=== PATIENT | female | born 1990 | race Caucasian/White ===

== ENCOUNTER 2018-06-23 07:24 | Emergency (ER) | payer BC ==
[2018-06-23 07:54] LABS: PLATELET COUNT 280 10^3/uL (150-400)
--- NOTE | 2018-06-23 08:07 | EDPHY ---
H & P Stated Complaint: gen abd pain x2wks worse last night, nausea, low back pain Time Seen by Provider: 06/23/18 07:32 HPI/ROS: CHIEF COMPLAINT: Abdominal pain HISTORY OF PRESENT ILLNESS: 27-year-old female presents with a 2 week history of abdominal pain. Onset of right lower quadrant pain 2 weeks ago. She was seen at [facility] and had a CT scan of the abdomen and pelvis as well as an ultrasound of the pelvis. She was diagnosed with a right ovarian cyst, measuring for 5 cm. She followed up with gynecology and had a repeat ultrasound, which demonstrated persistence of the cyst. She was placed on control pills. Since starting control pills, she complains of nausea, increased acne and a bump under her tongue. The pelvic pain has gradually increased and is unrelieved with ibuprofen. The pain is mainly in the right lower quadrant, but now is generalized. Associated with 1 episode of vomiting last night. REVIEW OF SYSTEMS: complete 10 point ROS reviewed and is negative except for the noted elements in the HPI - Medical/Surgical History Hx Asthma: No Hx Chronic Respiratory Disease: No Hx Diabetes: No Hx Cardiac Disease: No Hx Renal Disease: No Hx Cirrhosis: No Hx Alcoholism: No Hx HIV/AIDS: No Hx Splenectomy or Spleen Trauma: No Other PMH: tubal ligation 2017. ovarian cyst - Social History Smoking Status: Never smoked Alcohol Use: Sober Drug Use: None - Physical Exam Exam: General Appearance: Alert, pleasant Eyes: Pupils equal and round, no conjunctival pallor or injection ENT, Mouth: Mucous membranes moist Neck: Normal inspection Respiratory: Lungs are clear to auscultation Cardiovascular: Regular rate and rhythm Gastrointestinal: Abdomen is soft, generalized tenderness, especially in the right lower quadrant Neurological: A&O, nonfocal exam Skin: Warm and dry Extremities: Normal inspection Psychiatric: Mood and affect normal Constitutional: Initial Vital Signs Temperature (C) 36.8 C 06/23/18 07:27 Heart Rate 82 06/23/18 07:27 Respiratory Rate 18 06/23/18 07:27 Blood Pressure 122/77 H 06/23/18 07:27 O2 Sat (%) 98 06/23/18 07:27 O2 Delivery Mode Room Air Allergies/Adverse Reactions: No Known Allergies Allergy (Unverified 06/23/18 07:25) Home Medications: Medication Instructions Recorded Hydrocodone/APAP 5/325 [[place] 1 - 2 tab PO Q4H PRN #10 tab 06/23/18 5/325] Tayt[place] 1 mg-20 Mcg Capsule 06/23/18 Medical Decision Making - Diagnostics Imaging Results: Imaging Impressions Pelvic/Renal Ultrasound 06/23/18 08:07 Impression: 1. Prominent periuterine vessels bilaterally. Given patient's symptoms and history, this may be related to pelvic congestion syndrome. Recommend IR consultation for possible embolization. 2. Simple cyst measuring 3.1 cm on the right. Findings and recommendations discussed with YENY ALARCON at 0937 hour, 2017. Imaging: Discussed imaging studies w/ calliope player Radiologist ED Course/Re-evaluation: This patient presents with a known right ovarian cyst, associated with worsening pelvic pain. Abdominal exam is benign. Pelvic ultrasound reveals a 3.1 cm right ovarian cyst, smaller than previously visualized. She also may have pelvic congestion syndrome, which would account for the ongoing generalized pelvic pain. Ultrasound results discussed with the patient. Dr. Chaudhry consulted with the pt and will see her for possible IR embolization as outpt. Differential Diagnosis: Differential diagnosis includes though it is not limited to ectopic , ovarian cyst, ovarian torsion, PID, UTI, appendicitis. - Data Points Laboratory Results: Laboratory Results 06/23/18 07:45 06/23/18 06/23/18 06/23/18 07:45 07:45 07:37 WBC 6.58 10^3/uL 10^3/uL (3.80-9.50) RBC 4.51 10^6/uL 10^6/uL (4.18-5.33) Hgb 13.1 g/dL g/dL (12.6-16.3) Hct 39.4 % % (38.0-47.0) MCV 87.4 fL fL (81.5-99.8) MCH 29.0 pg pg (27.9-34.1) MCHC 33.2 g/dL g/dL (32.4-36.7) RDW 13.1 % % (11.5-15.2) Plt Count 280 10^3/uL 10^3/uL (150-400) MPV 9.1 fL fL (8.7-11.7) Neut % (Auto) 68.7 % % (39.3-74.2) Lymph % (Auto) 21.4 % % (15.0-45.0) [place] % (Auto) 7.8 % % (4.5-13.0) Eos % (Auto) 1.4 % % (0.6-7.6) Baso % (Auto) 0.5 % % (0.3-1.7) Nucleat RBC Rel Count 0.0 % % (0.0-0.2) Absolute Neuts (auto) 4.53 10^3/uL 10^3/uL (1.70-6.50) Absolute Lymphs (auto) 1.41 10^3/uL 10^3/uL (1.00-3.00) Absolute Monos (auto) 0.51 10^3/uL 10^3/uL (0.30-0.80) Absolute Eos (auto) 0.09 10^3/uL 10^3/uL (0.03-0.40) Absolute Basos (auto) 0.03 10^3/uL 10^3/uL (0.02-0.10) Absolute Nucleated RBC 0.00 10^3/uL 10^3/uL (0-0.01) Immature Gran % 0.2 % % (0.0-1.1) Immature Gran # 0.01 10^3/uL 10^3/uL (0.00-0.10) Beta HCG, Qual NEGATIVE Urine Color YELLOW Urine Appearance HAZY Urine pH 5.0 (5.0-7.5) Ur Specific [place] 1.023 (1.002-1.030) Urine Protein NEGATIVE (NEGATIVE) Urine Ketones TRACE H (NEGATIVE) Urine Blood NEGATIVE (NEGATIVE) Urine Nitrate NEGATIVE (NEGATIVE) Urine Bilirubin NEGATIVE (NEGATIVE) Urine Urobilinogen 2.0 EU H EU (0.2-1.0) Ur Leukocyte Esterase NEGATIVE (NEGATIVE) Urine Glucose NEGATIVE (NEGATIVE) Medications Given: Discontinued Medications Ketorolac Tromethamine (Toradol) 30 mg IVP EDNOW ONE Stop: 06/23/18 08:09 Last Admin: 06/23/18 08:28 Dose: 30 mg Departure - Departure Disposition: Home, Routine, Self-Care Clinical Impression: Pelvic congestion syndrome Ovarian cyst Qualifiers: Laterality: right Qualified Code(s): N83.201 - Unspecified ovarian cyst, right side Condition: Good Instructions: Ovarian Cyst (ED) Additional Instructions: Ibuprofen 600 mg 3 times daily while the pain persists. 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 Dr. Nix will see you tomorrow at 1pm. Referrals: Ariella Nix MD [Medical Doctor] - As per Instructions Stand Alone Forms: Work Excuse Prescriptions: Hydrocodone/APAP 5/325 [[place] 5/325] 1 - 2 tab PO Q4H PRN #10 tab PRN Reason: Pain, Moderate
[2018-06-23] MEDS ORDERED: KETOROLAC 15 MG/1 ML SDV IVP ONE (08:08)
[2018-06-23] MEDS ORDERED: KETOROLAC 15 MG/1 ML SDV ONE ×2 (08:25→08:27)
[2018-06-23 10:37] VITALS: BP 116/69
== END 2018-06-23 10:35 | disposition home or self-care (01) ==
DX: N83.201 Unspecified ovarian cyst, right side (principal)
CPT/HCPCS: 96374; J1885

== ENCOUNTER → 2018-06-24 | Outpatient (CLI) | payer BC | LOC: FIMAGING 12:55 | PROVIDERS: ATTEND Radiology Diagnostic Radiology | DX: R10.2 Pelvic and perineal pain (principal) ==